=== PATIENT | female | born 1960 | race Caucasian/White ===

== ENCOUNTER 2021-02-03 14:25 | Emergency (ER) | payer BC, SELFPAY ==
[2021-02-03 14:34] VITALS: BP 105/68; PULSE 106; RESP 16; TEMP 36.8; O2SAT 98
--- NOTE | 2021-02-03 14:54 | ED.URI ---
HPI - URI/Sore Throat General Chief Complaint: Upper Respiratory Infection Stated Complaint: sinus issues Time Seen by Provider: 02/03/21 14:45 Source: patient Mode of arrival: ambulatory Limitations: no limitations History of Present Illness HPI Narrative: Layla Phillips is a 60 yo female with PMH of PCOS and anxiety , [facility] complaints of sinus headache and congestion that started on Sunday. She went to urgent care yesterday and was tested for Covid and flu which were negative but was not giving any medication, today she has some dizziness and feels foggy because of the congestion This is a recurrent situation for her this time of the year Related Data Home Medications Medication Instructions Recorded Confirmed alprazolam 1 mg tablet 1 mg PO DAILY 04/21/19 09/23/20 duloxetine 60 mg capsule,delayed 60 mg PO DAILY 04/21/19 09/23/20 release multivitamin 1 tablet PO DAILY 04/21/19 09/23/20 acetaminophen 650 mg 650 mg PO Q8H 01/28/20 09/23/20 tablet,extended release ibuprofen 200 mg capsule 200 mg PO Q6H PRN 01/28/20 09/23/20 raloxifene mg 02/03/21 suvorexant [Belsomra] mg PO 02/03/21 Allergies Allergy/AdvReac Type Severity Reaction Status Date / Time morphine AdvReac Intermediate SEVERE N/V Verified 02/03/21 14:32 POSTOP NO KNOWN DRUG ALLERGIES Allergy Unknown Y Uncoded 06/23/03 16:54 (Class Allergy) Review of Systems Review of Systems: CONSTITUTIONAL: Denies fever, chills, sweats. EYES: Denies visual changes, redness, discharge. ENT: Denies rhinorrhea, sinus congestion, sore throat, otalgia. CARDIOVASCULAR: Denies chest pain, palpitations, edema. RESPIRATORY: Denies dyspnea, wheezing, cough GASTROINTESTINAL: Denies abdominal pain, nausea, vomiting, diarrhea. GENITOURINARY: Denies dysuria, hematuria, abnormal discharge SKIN: Denies rash or itching. NEUROLOGIC: Denies numbness, or focal weakness. PSYCHIATRIC: Denies anxiety or depression. [facility] Past Medical History Medical History Anemia Anxiety Bilateral knee pain BMI 23.0-23.9, adult Degenerative arthritis of knee, bilateral Osteoporosis Rheumatoid arthritis Surgical History Surgical History H/O lumpectomy H/O: hysterectomy History of endometrial ablation Family History Family History Mother Family history of cardiovascular disease Family history of arthritis Father Family history of malignant melanoma Social History Social History Smoking status: Former smoker Second hand tobacco smoke exposure: No Smoking end date: 05/07/13 Alcohol intake: current Comments At time of signature, I agree with nursing past medical, surgical, social and family history. There is no relevant family history pertinent to the presenting complaint. Exam Narrative: GENERAL: This is a well-nourished, well-developed patient, in mild distress. HEAD: normocephalic, atraumatic. EYES: Sclera clear/white. Vision is grossly intact. EARS: External ears normal, auditory canals clear and without drainage, fluid behind TMs without perforation. Hearing grossly intact. NOSE: External nose normal without nasal discharge, nares with redness, no rhinorrhea. THROAT: Mucous membranes moist, posterior pharynx mild erythema NECK: Neck supple, non-tender CARDIOVASCULAR: Regular rate and rhythm without murmurs, gallops, or rubs. RESPIRATORY: Clear to auscultation. Breath sounds equal bilaterally. No wheezes, rales, or rhonchi. GASTROINTESTINAL: Abdomen soft, non-tender, SKIN: warm, intact with no suspicious lesions or rash, good texture and turgor. NEURO: awake, alert, and oriented to person, place and time. There were no obvious focal neurologic abnormalities. Steady gait EXTREMITIES: Normal range of motion. BACK: Nonte
== END 2021-02-03 15:03 | disposition home or self-care (01) ==
PROVIDERS: Emergency Provider Nurse Practitioner
DX: J01.10 Acute frontal sinusitis, unspecified (principal); Z87.891 Personal history of nicotine dependence; D64.9 Anemia, unspecified; M81.0 Age-related osteoporosis without current pathological fracture; M06.9 Rheumatoid arthritis, unspecified; M17.0 Bilateral primary osteoarthritis of knee; F41.9 Anxiety disorder, unspecified
CPT/HCPCS: 99213; G0463

== ENCOUNTER → 2022-03-08 14:22 | Outpatient (CLI) | payer BC, SELFPAY ==
--- NOTE | ~2022-03-08 | XR_ITS ---
XR ankle LT min 3V DATE: 03/08/2022 14:32 INDICATION: Fall one week ago. Lateral ankle pain. TECHNIQUE: 4 views COMPARISON: None FINDINGS: . There is anterolateral mild soft tissue swelling. No fracture or dislocation of the ankle or disruption of the ankle mortise. No periosteal reaction or bone destruction. IMPRESSION: Mild anterolateral soft tissue swelling; no fracture or dislocation is detected Reviewed, dictated and finalized at location A.
== END ==
PROVIDERS: PCP Family Medicine; Visit Provider Physician Assistant
DX: M25.572 Pain in left ankle and joints of left foot (principal); S99.912A Unspecified injury of left ankle, initial encounter; M79.89 Other specified soft tissue disorders
CPT/HCPCS: 73610

== ENCOUNTER → 2022-05-30 13:23 | Outpatient (CLI) | payer BC, SELFPAY ==
--- NOTE | ~2022-05-30 | DEXA_ITS ---
Bone Density Report Name: SHARON BERMUDEZ Age: 62 Sex: Female Ethnicity: White Date of : 1960 Indication: postmenopausal; screening for osteoporosis; height loss; hysterectomy; Referring Provider: JASWINDER, STANISLAW White Study: Bone densitometry was performed. Exam Date: May 30, 2022 Accession number: [id number] Bone Density: Region BMD T-score Z-score Classification AP Spine (L1-L4) 0.838 -1.9 -0.5 Osteopenia Femoral Neck (Left) 0.664 -1.7 -0.4 Osteopenia Total Hip (Left) 0.739 -1.7 -0.7 Osteopenia Femoral Neck (Right) 0.687 -1.5 -0.2 Osteopenia Total Hip (Right) 0.725 -1.8 -0.8 Osteopenia Total Hip Mean 0.732 -1.8 -0.8 Osteopenia World Health Organization criteria for BMD impression classify patients as: Normal (T-score at or above -1.0), Osteopenia (T-score between -1.0 and -2.5), or Osteoporosis (T-score at or below -2.5). 10-year Fracture Risk: FRAX not reported because: Treated for osteoporosis Clinical Information Provided by Patient: Is being treated for osteoporosis Has used the following medications: Evista (i.e. raloxifene) Has the following medical conditions: Hysterectomy Patient maximum height was 71 Menopause Age: 41 Drinks caffeinated beverages Onset of menses at age 15 Number of children 2 Impression: The patient has low bone mass, based on the Total Spine T-score. Discussion: It is important to ask patients whether they are taking their medications and to encourage continued and appropriate compliance with their osteoporosis therapies to reduce fracture risk. It is also important to review their risk factors and encourage appropriate calcium and vitamin D intakes, exercise, fall prevention and other lifestyle measures. Follow-Up: Consider a repeat BMD and Vertebral Fracture Assessment (VFA) exam in 2 years or sooner if medically necessary, to reassess this patient's status. Reported by: SHAHEED on 05/30/2022 1:48:00 PM. Reviewed, dictated and finalized at location AHerman SERRATO
== END ==
PROVIDERS: PCP Family Medicine; Visit Provider Family Medicine
DX: Z78.0 Asymptomatic menopausal state (principal); M85.89 Other specified disorders of bone density and structure, multiple sites
CPT/HCPCS: 77080

== ENCOUNTER 2022-11-16 20:45 | Emergency (ER) | payer OTHER, SELFPAY ==
--- NOTE | ~2022-11-16 | XR_ITS ---
EXAMINATION: XR wrist LT min 3V DATE: 11/16/2022 21:01 INDICATION: Left wrist pain. Fall. TECHNIQUE: 3 views of left wrist were obtained. COMPARISON: None. FINDINGS: There is a transverse fracture of distal radial metaphysis. The distal fracture fragment de monstrates impaction and dorsal angulation. There is 3 degrees dorsal tilt of the distal articular ott rface. There is a nondisplaced fracture of the ulnar styloid. There is mild osteoarthritis of first c arpometacarpal joint. IMPRESSION: 1. Transverse fracture of distal radial metaphysis. 2. Nondisplaced fracture of the ulnar styloid. Reviewed, dictated and finalized at location E.
[2022-11-16 20:51] VITALS: BP 113/73; PULSE 71; RESP 15; TEMP 36.4; O2SAT 100
[2022-11-16] MEDS: ONDANSETRON HCL ODT 4 MG TABLET PO (21:52)
[2022-11-16] MEDS: oxyCODONE/ACETAMINOPHEN (*CRX) 5-325 MG TABLET 1 TABLET PO (21:52)
--- NOTE | 2022-11-17 01:02 | ED.UPPEXIN ---
HPI - Extremity Injury (Upper) General Chief Complaint: Extremity Injury, Upper Stated Complaint: fell - LEFT wrist pain Time Seen by Provider: 11/16/22 21:33 History of Present Illness HPI narrative: 62-year-old female presents after fall on outstretched hand when she tripped walking her dog, she is having pain to her left wrist. No focal numbness or weakness Related Data Home Medications Medication Instructions Recorded Confirmed alprazolam 1 mg tablet (Xanax) 1 mg PO DAILY 04/21/19 10/24/22 duloxetine 60 mg capsule,delayed 60 mg PO DAILY 04/21/19 10/24/22 release (Cymbalta) multivitamin (Daily Multi-Vitamin 1 tablet PO DAILY 04/21/19 10/24/22 tablet) acetaminophen 650 mg 650 mg PO Q8H PRN Pain 01/28/20 10/24/22 tablet,extended release raloxifene 60 mg tablet 60 mg PO DIRECTED 02/03/21 10/24/22 tumeric 100 mg-leyda 150 mg-olive cap PO 06/23/21 10/24/22 50 mg-oreg 150 mg-caprylate capsule Allergies Allergy/AdvReac Type Severity Reaction Status Date / Time morphine AdvReac Intermediate SEVERE N/V Verified 10/19/22 14:20 POSTOP Review of Systems Review of Systems: CONST: No fever. HEENT: No head truama C/V: No chest pain RESP: No difficulty breathing GI: No abd pain : No flank pain M/S: Left wrist pain SKIN: No rash. NEURO: [No focal numbness or weakness] PSYCH: [No depression] [facility] Past Medical History Medical History Anemia Anxiety Arthritis of carpometacarpal (CMC) joint of right thumb Bilateral knee pain BMI 23.0-23.9, adult Degenerative arthritis of knee, bilateral Osteoporosis Rheumatoid arthritis Surgical History Surgical History H/O lumpectomy H/O: hysterectomy History of endometrial ablation Family History Family History Mother Family history of cardiovascular disease Family history of arthritis Father Family history of malignant melanoma Social History Social History Smoking status: Former smoker Second hand tobacco smoke exposure: No Smoking end date: 05/07/13 Alcohol intake: current Exam Narrative: EXAMINATION OF ORGAN SYSTEMS/BODY AREAS: Constitutional: Vital signs per nursing GENERAL:[No acute distress, non-toxic appearing.] HEAD: Normal with no signs of head trauma. EYES: EOMI, conjunctiva normal ENT: Hearing grossly intact LUNGS: Nonlabored breathing. HEART: [Regular rate and rhythm] ABD: [Soft], no distention EXT: Swelling and tenderness to the left wrist, full range of motion of the hand, normal radial pulses and good cap refill SKIN: [No rashes or lesions.] NEURO: [Alert and oriented x 3. No gross focal sensory or strength deficits.] PSYCH: Normal affect Course Vital Signs Vital signs: Vital Signs Temperature 97.6 F 11/16/22 20:51 Pulse Rate 71 11/16/22 20:51 Respiratory Rate 15 11/16/22 20:51 Blood Pressure 113/73 11/16/22 20:51 Pulse Oximetry 100 11/16/22 20:51 Oxygen Delivery Room Air 11/16/22 20:51 Temperature 97.6 F 11/16/22 20:51 Pulse Rate 71 11/16/22 20:51 Respiratory Rate 15 11/16/22 20:51 Blood Pressure 113/73 11/16/22 20:51 Pulse Oximetry 100 11/16/22 20:51 Oxygen Delivery Room Air 11/16/22 20:51 Procedures Orthopedic Splinting/Casting Injury #1: Splinting/Casting Date: 11/16/22 Side: left Upper Extremity Injury Location: wrist Upper Extremity Immobilizer: volar splint Splint: customized in ED Pre-Procedure Neuro Vascular Exam: normal Post-Procedure Neuro Vascular Exam: normal MDM - Extremity Injury (Upper) MDM Narrative Medical decision making narrative: 62-year-old female presents after fall on outstretched left hand, denies any trauma or injuries anywhere else, on exam she is neurovascul
== END 2022-11-16 22:26 | disposition home or self-care (01) ==
LOC: ANHED 21:56
PROVIDERS: Emergency Provider Emergency Medicine; PCP Family Medicine
DX: S62.102A Fracture of unspecified carpal bone, left wrist, initial encounter for closed fracture (principal); Z87.891 Personal history of nicotine dependence; W01.0XXA Fall on same level from slipping, tripping and stumbling without subsequent striking against object, initial encounter
CPT/HCPCS: 29125; 73110; 99284; A9270

== ENCOUNTER 2022-11-24 00:33 | Day surgery (SDC) | payer OTHER, SELFPAY ==
[2022-11-22 14:13] VITALS: BMI 21.9
--- NOTE | 2022-11-22 14:35 | SUR.PREOP ---
Report to the Outpatient Waiting Room, entrance under the green pavilion located off [facility], at time 1000 on date 11/24/2022. Planned Procedure Time: 1200. Time changes happen often and if your time is changed the preop area will call you the afternoon before. - You and your visitor will be asked to self-screen and do not enter if you have any COVID symptoms. - A mask is optional within the hospital at this time. Patients may have clear liquids (water, carbonated beverages, clear teas, apple juice) until 3 hours prior to surgery with a maximum of 20 ounces- 0900. - No food from midnight until time of surgery - Infants may have breast milk until 4 hours before surgery, formula 6 hours prior to surgery. - Children will be allowed to drink immediately following surgery. If applicable, please bring a bottle or sippy cup to assist with drinking. Juice, water, soda, and popsicles are readily available. For infants on formula, please bring formula the day of surgery. Pacifiers are allowed. Take the following medications with a SIP of water the morning of surgery: Duloxetine, Tylenol as needed, Xanax as needed DO NOT STOP ANY OF YOUR OTHER PRESCRIPTION MEDICATIONS PRIOR TO SURGERY ?EXCEPT THE FOLLOWING Medications to discontinue per physician Vitamin Date to take last dose today- 11/22/2022 Please no make-up, nail bolivian, hairspray, perfume, deodorant, or body powder the day of surgery. No jewelry (including any body piercings) or valuables the day of surgery, leave them at home. Please take a shower or bath the night before, or the morning of, surgery with an antibacterial soap. Wear comfortable, loose fitting clothing. Children are encouraged to wear pajamas. - Jewelry must be removed prior to entering the operating room. Rings and piercings that are not removed may be cut off. - The hospital will not accept responsibility for valuables. - Please leave all valuables, including medications, at home the day of surgery. If you are going home after surgery, a licensed electric pile driver operator must drive you home. - NO public transportation without another adult if you receive anesthesia. - We recommend that an adult stay with you for 24 hours following discharge. - We also recommend that you do not drive, make important decision, drink alcoholic beverages, or take any drugs that were not prescribed by your health care provider for at least 24 hours after your discharge time. For Pediatric surgeries, we recommend two adults accompany the child home. Follow any additional instructions given to you from your surgeon. If you or anyone in your household have experienced Covid symptoms in the past week, please notify your surgeon or the nurse liaison at the phone number below for possible testing. Telephone instructions given to ____patient- Kelly and asked if any additional questions and then verbalized understanding. Patient advised to call surgeon office or pre surgery nurse liaison [phone] if any additional questions.
[2022-11-24] VITALS (7 sets, daily range): BP systolic 109–140; BP diastolic 77–96; PULSE 76–96; RESP 12–20; TEMP 36.1–37.3; O2SAT 96–99
--- NOTE | ~2022-11-24 | XR_ITS ---
EXAMINATION: XR surgery orthopedic DATE: 11/24/2022 12:10 CDT INDICATION: LT ORIF WRIST . TECHNIQUE: 2 fluoroscopic images of the left wrist were obtained during ORIF left wrist performed by the surgeon. I was not present in the operating room. Fluoroscopy exposure time was 26.7 seconds. Air Kerma 0.6129 mGy. DAP 0.01-2 mGym2. COMPARISON: 11/16/2022 FINDINGS: Screw and plate fixation of the distal radius into near-anatomic alignment. IMPRESSION: Fluoroscopic documentation of ORIF left wrist. Please refer to the operative note for complete proced ural details . Reviewed, dictated and finalized at location K. IMPRESSION: Fluoroscopic documentation of ORIF left wrist. Please refer to the operative no te for complete procedural details .
[2022-11-24] MEDS: ACETAMINOPHEN 500 MG TABLET 1000 MG PO (09:48)
[2022-11-24] MEDS: LACTATED RINGERS 1,000 ML 30 ML IV CONT ×2 (10:00→13:24)
[2022-11-24] MEDS: KETOROLAC 15 MG/ML VIAL (*BKC) IV PUSH (10:03)
--- NOTE | 2022-11-24 10:49 | WPDANESEPPF ---
Anes - Initial Pre Proc Eval Procedure: Operation Date: 11/24/22 11:00 Proposed Procedures p Open Reduction Internal Fixation Left Distal Radius - Naresh Fish MD Date/Time: 11/24/22 10:49 Surgeon: Naresh Fish MD Pre Op Diagnosis: Left Distal Radius Fx Patient Data Age: 62 Gender: F Height: 1.78 m Weight: 69.7 kg Last Vital Signs Temp 37.3 C 11/24/22 09:13 Pulse 76 11/24/22 09:13 Resp 20 11/24/22 09:13 BP 109/77 11/24/22 09:13 Pulse Ox 99 11/24/22 09:13 O2 Del Method Room Air 11/24/22 09:13 Allergies Allergy/AdvReac Type Severity Reaction Status Date / Time morphine AdvReac Severe SEVERE N/V Verified 11/24/22 09:15 POSTOP Home Medications Medication Instructions Recorded Confirmed Type alprazolam 1 mg tablet (Xanax) 1 mg PO DAILY PRN Anxiety 04/21/19 11/24/22 History duloxetine 60 mg capsule,delayed 90 mg PO DAILY 04/21/19 11/22/22 History release (Cymbalta) multivitamin (Daily Multi-Vitamin 1 tablet PO DAILY 04/21/19 11/22/22 History tablet) acetaminophen 650 mg 650 mg PO Q8H PRN Pain 01/28/20 11/22/22 History tablet,extended release raloxifene 60 mg tablet 60 mg PO DIRECTED 02/03/21 11/22/22 History ibuprofen 400 mg tablet 400 mg PO Q6H PRN pain #30 tabs 11/16/22 11/22/22 Rx trazodone 50 mg tablet 100 mg PO HS PRN insomnia 11/22/22 11/24/22 History Patient hx anesthesia problems: none Family hx anesthesia problems: none Results Review: All pre-operative results and documents have been reviewed as part of the pre-operative evaluation. [facility] Past Medical History Medical History Anemia Anxiety Arthritis of carpometacarpal (CMC) joint of right thumb Bilateral knee pain BMI 23.0-23.9, adult Degenerative arthritis of knee, bilateral Osteoporosis Rheumatoid arthritis Surgical History Surgical History H/O lumpectomy H/O: hysterectomy History of endometrial ablation Family History Family History Mother Family history of cardiovascular disease Family history of arthritis Father Family history of malignant melanoma Social History Social History Smoking packs per day: 0.5 Smoking cigarettes per day: 10.0 Years smoked: 25 Smoking pack-years: 12.50 Smoking status: Former smoker Tobacco type: cigarettes Second hand tobacco smoke exposure: No Smoking end date: 10/22/22 Alcohol intake: current Drinks per week: 2 Substance use: never Lack of Transportation: No Lack of Food: Never True Current Housing: I Have Housing Concerned About Future Housing: No Difficulty Paying Gas/Electric Bills: No Difficulty Paying for Meds: No Currently Unemployed: No Education: Trade/Vocational Certificate Difficulty w/ Childcare or Family Care: No Living arrangements: with family Spiritual care concerns: No Anes - Eval Final PreProcedure Day of Procedure 11/24/22 10:49 Patient weight: normal Heart: regular rate and rhythm Lungs: clear to auscultation Airway: Mallampati scale class II Neurological: alert and oriented Last oral intake: >/= 8 hours ASA classification: II Emergent: no Anesthetic plan: proceed Anesthesia type and monitoring: general LMA and standard monitoring Results Review: All pre-operative results and documents have been reviewed as part of the pre-operative evaluation. Informed Consent: The patient's anesthetic plan and its attendant risks and benefits were discussed with the patient/family/POA. Questions were solicited and answers provided to the satisfaction of the patient/family/POA.
--- NOTE | 2022-11-24 10:55 | WPDHPUPDATE1 ---
History and Physical Update Update Date/Time: 11/24/22 10:55 History and Physical has been reviewed, including an updated exam of the patient. There are NO changes in the patient's condition. Risks, benefits, and alternatives have been discussed and questions answered. Patient agrees to proceed with procedure.
[2022-11-24] MEDS: ceFAZolin 2 GM/D5W 50 ML 2 GM/50 ML BAG IVPB (11:44)
[2022-11-24] MEDS: SCOPOLAMINE 1.5 MG PATCH TRANSDERM (11:45)
[2022-11-24] MEDS: BUPIVACAINE/EPINEPHRINE 0.25% 50 ML VIAL 20 ML INFILTRATE (12:21)
--- NOTE | 2022-11-24 13:29 | P.OP_ITS ---
Procedure Note - Detailed Date of Procedure 11/24/22 Pre-op Diagnosis Left Distal Radius Fx Post-op Diagnosis Same Procedure Performed ORIF left distal radius fracture with fluoroscopic assistance Surgeon Naresh Fish MD [employer]obile Service Advisor Pal Lorenzo Anesthesia General Description of Procedure The patient was identified and the proper side identified. She was taken back to the operating room, transferred to the or table positioning supine taking care to pad her torso and extremities. After general anesthetic induction and intubation, a nonsterile tourniquet was placed high on the left arm which was prepped and draped in the usual sterile fashion. The extremity was exsanguinated and tourniquet inflated to 250 mmHg remaining up for approximately 61 minutes. A volar longitudinal incision was made along the FCR tendon distally. The subcutaneous tissue was sharply dissected protecting neurovascular structures. The FCR tendon was released from its sheath and retracted ulnarly. This allowed for the deep fascia of the forearm to be divided longitudinally in line with the incision. Care was taken to protect the volar compartment structures as well as the radial nerve and radial vascular structures. The pronator quadratus was elevated off of the distal radius allowing for inspection of the fracture site. The fracture fragments were disimpacted and able to be realigned virtually anatomically with fluoroscopic assistance. They were secured in this position with a wide short volar plate from the DVR set. The plate was applied with fluoroscopic visualization to avoid penetration of the joint and to ensure optimal hardware placement. Once the plate was secure the overall construct was assessed fluoroscopically on the AP and lateral views. The virtually anatomic reduction was held very nicely. The construct was stable. The wound was irrigated with a copious amount of sterile antibiotic solution. Skin edges were reapproximated with 3-0 Stratafix. Sterile dressing was applied. Tourniquet was released. A well-padded short- arm volar wrist splint was fashioned. The procedure was well tolerated. There were no known intraoperative complications. Estimated blood loss was negligible. Estimated Blood Loss 3 Tourniquet Time 61 Drains No Packing No Pathology None sent Complications No immediate complications Condition Stable Disposition PACU [facility] Billing Surgery - Charge Forward: Surgery Billing (28412; 0527 - intraoperative fluoroscopy)
== END 2022-11-24 15:10 | disposition home or self-care (01) ==
PROVIDERS: PCP Family Medicine; Visit Provider Orthopaedic Surgery
PROC: (CPT 25575; principal; 2022-11-24 11:00)
DX: S52.552A Other extraarticular fracture of lower end of left radius, initial encounter for closed fracture (principal); W19.XXXA Unspecified fall, initial encounter; D64.9 Anemia, unspecified; M81.0 Age-related osteoporosis without current pathological fracture; M06.9 Rheumatoid arthritis, unspecified; F41.9 Anxiety disorder, unspecified
CPT/HCPCS: 25607; 99199; A4565; A9270; C1713; J0690; J1100; J1170; J1885; J2250; J2405; J2704; J3010; J7120

== ENCOUNTER 2023-02-13 09:00 | Outpatient (RCR) | payer OTHER, SELFPAY ==
--- NOTE | 2023-01-10 09:54 | OTOPEVAL1 ---
Assessment and note entered by Mustapha Cruz, RAFY/Christopher, CHT Evaluation Information Assessment Status Evaluation Subjective Information Dx: Left distal radius fracture. s/p ORIF 11/24/22. She presents today in a wrist immobilizer. Reporting minimal pain, just stiffness . 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 Reported Pain Level Pain Score 0: Self Report Assessment OT Clinical Summary Patient presents to outpatient OT with dx of distal radius fracture s/p ORIF. She presents with stiffness and weakness that limits functional use for ADLs. Skilled OT indicated to maximize functional ROM, strength, and functional use via therapeutic activities and exercise, HEP instruction and progression, manual therapy, and modalities. Plan of Care Interventions Therapeutic Exercise,Manual Therapy,Therapeutic Activities,Paraffin OT Services Indicated Yes Treatment Frequency and 1x/week for 5 weeks Duration These treatments will address the objective and functional deficits as defined above. The patient will be advanced safely and appropriately in order for the patient to progress towards his/her prior level of function. Additional exercises will be introduced and as well as a comprehensive home exercise program upon discharge, if needed, ?to ensure carryover of functional gains achieved in the clinic. This treatment plan has been reviewed and agreement upon by the patient.
--- NOTE | 2023-01-10 09:55 | OPREHPOC ---
Outpatient Therapy Plan of Care This is a Multidisciplinary Plan of Care that may contain components documented by all disciplines (PT, OT, and ST.) OT Problem 1 OT Problem #1 Knowledge Deficit OT Goal 1 Goal 1. Patient to be independent with instructed materials. Target Visit 5 OT Problem 2 OT Problem #2 Impaired Range of Motion OT Goal 1 Goal Increased active ROM of the left UE: 1. pronation to 85 2. supination to 85 3. wrist flexion to 55 4. wrist extension to 50 Target Visit 5 OT Problem 3 OT Problem #3 Impaired Strength OT Goal 1 Goal 1. Increase functional lan specialist strength as measured by being able to complete lan specialist/pinch strengthening with at least yellow theraputty x5 minutes without pain.
--- NOTE | 2023-01-17 09:22 | PCOTNOTE ---
Patient called & cancelled scheduled appointment this date due to not feeling well.
--- NOTE | 2023-02-13 09:37 | OTOPDC ---
Assessment and note entered by Mustapha Cruz, OTR/Christopher, CHT Discharge Summary 02/13/23 Subjective Information Dx: Left distal radius fracture. s/p ORIF 11/24/22. Layla is reporting no pain, just some residual stiffness. Reports improvements in ROM and strength . She has progressed to 2 lb. with wrist strengthening. Reporting no paresthesias. Functionally she reports she is now able to lift 1/2 gallon of milk out of the fridge, hold a blow dryer, putting fitted sheet on her bed, and carrying groceries. Reported Pain Level Pain Score 0: Self Report Assessment OT Clinical Summary Patient re-evaluated today after 5 weeks of therapy. Patient has made excellent progress with therapy. ROM is measuring WFL and strength is getting back to normal limits. Reviewed HEP today and she is independent with all materials. No further skilled OT indicated at this time. Plan of Care OT Services Indicated No
== END 2023-02-13 13:51 | disposition home or self-care (01) ==
LOC: ANHOT 09:00
PROVIDERS: PCP Family Medicine; Visit Provider Orthopaedic Surgery
DX: S52.552D Other extraarticular fracture of lower end of left radius, subsequent encounter for closed fracture with routine healing (principal)
CPT/HCPCS: 97018; 97110; 97165

== ENCOUNTER 2023-08-23 11:20 | Outpatient (CLI) | payer OTHER, SELFPAY ==
--- NOTE | ~2023-08-23 | XR_ITS ---
Right Knee Technique: AP, lateral, and sunrise views were obtained. Clinical History: Arthritis Findings: No fracture or dislocation is seen. Osseous alignment is anatomic. Joint spaces are preserv ed without degenerative or erosive change. Soft tissues are unremarkable. No joint effusion is seen. Impression: Unremarkable right knee radiographs. Reviewed, dictated and finalized at location . Impression: Unremarkable right knee radiographs.
--- NOTE | ~2023-08-23 | XR_ITS ---
Left Knee Technique: AP, lateral, and sunrise views were obtained. Clinical History: Arthritis Findings: No fracture or dislocation is seen. Osseous alignment is anatomic. Joint spaces are preserv ed without degenerative or erosive change. Soft tissues are unremarkable. No joint effusion is seen. Impression: Unremarkable left knee radiographs. Reviewed, dictated and finalized at location . Impression: Unremarkable left knee radiographs.
== END 2023-08-23 11:21 | disposition home or self-care (01) ==
PROVIDERS: PCP Nurse Practitioner Family; Visit Provider Orthopaedic Surgery
DX: M17.0 Bilateral primary osteoarthritis of knee (principal)
CPT/HCPCS: 73564

== ENCOUNTER 2023-10-30 11:00 | Outpatient (CLI) | payer OTHER, SELFPAY ==
--- NOTE | ~2023-10-30 | CT_ITS ---
EXAMINATION: CT lung screening DATE: 10/30/2023 11:15 INDICATION: Z87.891 - Personal history of nicotine dependence TECHNIQUE: Computed tomography (CT) of the chest was performed without intravenous contrast. Addition al 3D reconstructions utilizing coronal maximum intensity projection (MIP) were performed. Automated exposure control and iterative reconstruction technique were employed. The dose-length product was 71 .03 mGy-cm. COMPARISON: None FINDINGS: Mild biapical pleural-parenchymal scarring. Mild discoid atelectasis in the basilar right lower lobe. No pulmonary nodules, pneumonia, pulmonary edema or pleural effusion. Heart size is normal. Small am ount of atherosclerotic coronary artery calcific lesion. No pericardial effusion. Thoracic aorta is n ormal in caliber. No pathologically enlarged thoracic lymphadenopathy. 7 mm cyst in the right hepatic lobe. Mild thoracic spondylosis. Mild thoracolumbar dextrocurvature. IMPRESSION: 1. Lung-RADS category 1: Negative. Continue annual screening with noncontrast low-dose chest CT in 12 months. Reviewed, dictated and finalized at location B. IMPRESSION: 1. Lung-RADS category 1: Negative. Continue annual screening with noncontrast l ow-dose chest CT in 12 months.
== END 2023-10-30 11:01 | disposition home or self-care (01) ==
PROVIDERS: PCP Family Medicine; Visit Provider Internal Medicine Critical Care Medicine
DX: Z12.2 Encounter for screening for malignant neoplasm of respiratory organs (principal); Z87.891 Personal history of nicotine dependence
CPT/HCPCS: 71271

== ENCOUNTER 2023-11-20 09:20 | Outpatient (CLI) | payer OTHER, SELFPAY ==
--- NOTE | 2023-11-28 23:24 | WPDHOMESLEEP ---
Sleep Study - Home Unattended Date of Study: 11/20/23 Ordering Provider: Sully Eaton MD Interpreting Provider: Sully Eaton MD Home Sleep Study Type: Watch PAT Height: 1.78 m Weight: 70.307 kg Body Mass Index: 22.2 Neck Circumference (inches): 12.75 [place]: 16 Reason for Sleep Study Hypersomnolence Sleep History Layla Phillips is a 63-year-old woman with excessive daytime sleepiness. She has difficulty falling asleep and staying asleep. This is been going on for years. It was better in her 20s when she had children. She was really tired by bedtime and did not have a problem falling asleep. She has tried speaker prescription medications including trazodone, Ambien, Lunesta and Belsomra. She never awakens from sleep short of breath. She never wakes at night with heartburn, belching or coughing.??She occasion snores loudly enough that others complain. She rarely has trouble sleeping when she has a cold. She never wakes up gasping for breath during the night. She never has breathing problems at night. She rarely sweats excessively at night. She never notices her heart pounding or beating irregularly during the night. She occasionally falls asleep during the day. She never falls asleep involuntarily, never falls asleep while driving. She never experiences loss of muscle tone with strong emotion. She never feels paralyzed on waking or falling asleep. She occasionally experiences vivid dreams upon waking or falling asleep. She never feels afraid of going to sleep. She occasionally has nightmares. She occasionally recalls her dreams. She constantly has thoughts racing through her mind. She occasional feels sad or depressed. She constantly feels anxiety. She never notices parts of her body jerk. She never kicks during the night. She rarely feels crawling or aching feelings in her legs. She never feels leg pain at night. She never has morning jaw pain, and occasionally grinds her teeth at night. She rarely feels bothered by pain during the day, is rarely awakened by pain during the night. She occasionally wakes up feeling stiff in the morning, rarely wakes feeling sore or achy in the morning. She rarely awakens with pain in her neck, spine, or joints. Normal bedtime is 10:00 p.m., falling asleep within an hour and sometimes taking longer than an hour to fall asleep. She wakes twice to go to the bathroom and she will also read a book while awake. Her normal wake time is 7:00 a.m.. She keeps the same schedule on weekends. She estimates getting between 5 and 6 hours of sleep at night. She does not take naps in the afternoon or evening. She is not refreshed after short nap. She feels better in the afternoon compared to other times of day. Habits:??Tobacco: Quit 9 months ago Caffeine: 2 cups in the morning Alcohol: Social consumption Recreational substances: none PMFSH Past Medical History Medical History Anemia Anxiety Arthritis of carpometacarpal (CMC) joint of right thumb Bilateral knee pain BMI 23.0-23.9, adult Degenerative arthritis of knee, bilateral Insomnia Nondisplaced fracture of left ulna styloid process, initial encounter for closed fracture Osteoporosis Surgical History Surgical History Closed extra-articular fracture of distal end of left radius ORIF November 24, 2022 H/O lumpectomy H/O: hysterectomy History of endometrial ablation Family History Family History Mother Family history of cardiovascular disease Family history of arthritis Father Family history of malignant melanoma Social History Social History Smoking packs per day: 0.5 Smoking cigarettes per day: 10.0 Years smoked: 25 Smoking pack-years: 12.50 Smoking status: Former smoker T
[2023-11-28 23:36] VITALS: BMI 22.2
== END 2023-11-21 14:45 | disposition home or self-care (01) ==
LOC: ANHCSM 09:21
PROVIDERS: PCP Nurse Practitioner Family; Visit Provider Internal Medicine Critical Care Medicine
DX: G47.00 Insomnia, unspecified (principal)
CPT/HCPCS: 95800

== ENCOUNTER 2024-03-03 12:06 | Outpatient (CLI) | payer OTHER, SELFPAY | END 2024-03-03 12:07 | disposition home or self-care (01) | PROVIDERS: PCP Nurse Practitioner Family; Visit Provider Orthopaedic Surgery | DX: M17.0 Bilateral primary osteoarthritis of knee (principal) | CPT/HCPCS: 73564 ==

== ENCOUNTER 2025-04-24 14:37 | Emergency (ER) | payer OTHER, SELFPAY ==
[2025-04-24 14:54] VITALS: BP 155/94; PULSE 69; RESP 16; TEMP 36.6; O2SAT 99
--- NOTE | 2025-04-24 15:23 | ED.URI ---
HPI - URI/Sore Throat General Chief Complaint: Upper Respiratory Infection Stated Complaint: URI Symptoms x2 weeks Time Seen by Provider: 04/24/25 15:15 Source: patient and RN notes reviewed Mode of arrival: ambulatory Limitations: no limitations History of Present Illness HPI Narrative: 65-year-old female presents Express Care complaining of upper respiratory symptoms for 2 weeks. Patient reports sinus pressure, mucopurulent nasal drainage, cough is not getting much better. Patient has been doing sinus rinses without relief. Patient denies any fevers advice, chills, chest pain, breathing problems, or other symptoms. Related Data Home Medications ?Medication ?Instructions ?Recorded ?Confirmed ?Last Taken ?Type alprazolam 1 mg tablet (Xanax) 1 mg PO DAILY PRN Anxiety 04/21/19 01/19/25 11/24/22 04:00 History duloxetine 60 mg capsule,delayed 90 mg PO DAILY 04/21/19 01/19/25 11/23/22 16:00 History release (Cymbalta) multivitamin (Daily Multi-Vitamin 1 tablet PO DAILY 04/21/19 01/19/25 11/22/22 History tablet) buspirone 5 mg tablet 5 mg PO TID 10/16/23 01/19/25 Unknown History ramelteon 8 mg tablet 8 mg PO QHS 10/16/23 01/19/25 Unknown History suvorexant 5 mg tablet (Belsomra) mg PO 04/24/25 Unknown History Allergies Allergy/AdvReac Type Severity Reaction Status Date / Time morphine AdvReac Severe SEVERE N/V Verified 04/24/25 15:03 POSTOP Review of Systems Review of Systems: CONSTITUTIONAL: Denies fever, chills, or sweats. EYES: Denies visual changes, redness, or discharge. ENT: Denies rhinorrhea, sore throat, or otalgia. Positive for congestion and sinus pressure. CARDIOVASCULAR: Denies chest pain, palpitations, or edema. RESPIRATORY: Positive for cough. Negative for wheezing or dyspnea. GASTROINTESTINAL: Denies abdominal pain, nausea, vomiting, or diarrhea. GENITOURINARY: Denies dysuria or hematuria. SKIN: Denies rash or itching. MUSCULOSKELETAL: Denies back pain, joint pain, or myalgia. NEUROLOGIC: Denies headache, numbness, or weakness. PSYCHIATRIC: Denies anxiety or depression. All other systems reviewed are negative, except as documented in HPI. [facility] Past Medical History Medical History Insomnia Nondisplaced fracture of left ulna styloid process, initial encounter for closed fracture Arthritis of carpometacarpal (CMC) joint of right thumb Degenerative arthritis of knee, bilateral Bilateral knee pain Osteoporosis BMI 23.0-23.9, adult Anemia Anxiety Surgical History Surgical History Closed extra-articular fracture of distal end of left radius ORIF November 24, 2022 H/O lumpectomy History of endometrial ablation H/O: hysterectomy Family History Family History Mother Family history of cardiovascular disease Family history of arthritis Father Family history of malignant melanoma Social History Social History Smoking packs per day: 0.5 Smoking cigarettes per day: 10.0 Years smoked: 25 Smoking pack-years: 12.50 Smoking status: Former smoker Tobacco type: cigarettes Second hand tobacco smoke exposure: No Smoking end date: 10/22/22 Alcohol intake: current Drinks per week: 2 Substance use: never Lack of Transportation: No Lack of Food: Never True Current Housing: I Have Housing Concerned About Future Housing: No Difficulty Paying Gas/Electric Bills: No Difficulty Paying for Meds: No Currently Unemployed: No Education: Bachelor's Degree Difficulty w/ Childcare or Family Care: No Living arrangements: with family Occupation/Education: retired Spiritual care concerns: No Comments At the time of my signature, I reviewed and agree with the nursing past medical, surgical, social, and family history. There is no relevant family history pertinent to the patient complaint. Exam Narrative: GENERAL: This is a well-nourished, well-developed adult, in no apparent distress. They are non ill-appearing, nontoxic appearing. HEAD: normocephalic, atraumatic. EYES: Sclera clear/white. Conjunctiva normal. Vision is grossly intact. Extraocular movements intact EARS: External ears normal, auditory canals clear and without drainage, TMs normal without perforation. Hearing grossly intact. NOSE: External nose normal with no obvious nasal discharge, nasal turbinates erythematous, no rhinorrhea. Maxillary and frontal sinus tenderness to palpation THROAT: Mucous membranes moist, posterior pharynx clear, erythematous with exudative PND. Uvula midline. NECK: Neck supple, non-tender without lymphadenopathy, masses or thyromegaly. CARDIOVASCULAR: Regular rate and rhythm without murmurs, gallops, or rubs. RESPIRATORY: Clear to auscultation. Breath sounds equal bilaterally. No wheezes, rales, or rhonchi. SKIN: warm, Dry, intact with no suspicious lesions or rash, good texture and turgor. NEURO: awake, alert, and oriented to person, place and time. There were no obvious focal neurologic abnormalities. EXTREMITIES: No joint tenderness, effusion, or edema noted. BACK: Nontender without deformity. Course Course Level of Care: Express Care Visit Vital Signs Vital signs: Vital Signs Temperature 97.8 F 04/24/25 14:54 Pulse Rate 69 04/24/25 14:54 Respiratory Rate 16 04/24/25 14:54 Blood Pressure 155/94 H 04/24/25 14:54 Pulse Oximetry 99 04/24/25 14:54 Temperature 97.8 F 04/24/25 14:54 Pulse Rate 69 04/24/25 14:54 Respiratory Rate 16 04/24/25 14:54 Blood Pressure 155/94 H 04/24/25 14:54 Pulse Oximetry 99 04/24/25 14:54 [facility] Narrative Medical decision making narrative: Given patient's length of symptoms likely she has a bacterial sinusitis. Will Treat with Augmentin. Discussed physical exam findings. Advised supportive measures and signs/symptoms to go to the ER. Pt is appropriate for outpt treatment and f/u. Differential Diagnosis Differential Diagnosis: Differential diagnostic considerations for upper respiratory infection include upper respiratory infection, croup, otitis media, sinusitis, viral infection, bronchitis, influenza, pharyngitis, strep, uvulitis. Lab Data [facility] Lab Attestation statement: I personally reviewed the patient's lab results. Critical Care Time Critical Care Time Critical Care Time: No Discharge Plan Discharge Clinical Impression: Sinusitis Qualifiers: Sinusitis location: unspecified location Chronicity: acute Recurrence: non-recurrent Qualified Code(s): J01.90 - Acute sinusitis, unspecified Patient Disposition: Home Condition: Stable Instructions: Antibiotic Form, Sinusitis (ED) Additional Instructions: Take the antibiotics as directed and complete the course even if you start to feel better. You may use a Neti pot saline rinse 3 times a day with lukewarm distilled water Continue to take Tylenol or Motrin as needed for pain or fevers. Use a humidifier or vaporizer at night. Drink plenty of water. 8-10 glasses per day. Use flonase 2 times per day for 5 days then as needed Take mucinex 2 times per day and be sure to take with 8oz of water. Follow up with Primary provider in 3-5 days Please go to the ER if he develops any difficulty breathing, chest pain, vomiting, worsening symptoms, or any other serious concerns Patient Language: Surinamese Prescriptions: New amoxicillin-pot clavulanate 875-125 mg tablet 1 tablet PO Q12H 7 Days Qty: 14 0RF No Action Belsomra 5 mg tablet PO multivitamin [Daily Multi-Vitamin] Tablet 1 tablet PO DAILY Rx Instructions: Takes 1 tablet daily AM. alprazolam [Xanax] 1 mg tablet 1 mg PO DAILY PRN (Reason: Anxiety) duloxetine [Cymbalta] 60 mg capsule,delayed release(DR/EC) 90 mg PO DAILY Rx Instructions: Takes 60MG and 30MG at HS. meloxicam 15 mg tablet 15 mg PO DAILY Qty: 90 2RF ramelteon 8 mg tablet 8 mg PO QHS buspirone 5 mg tablet 5 mg PO TID Follow-up/Referrals: Sandra,Nathalie Hilliard APRN [Primary Care Provider, Unknown] Time of Disposition: 15:09
== END 2025-04-24 15:13 | disposition home or self-care (01) ==
PROVIDERS: PCP Nurse Practitioner Family
DX: J01.90 Acute sinusitis, unspecified (principal); Z87.891 Personal history of nicotine dependence; F41.9 Anxiety disorder, unspecified; M18.11 Unilateral primary osteoarthritis of first carpometacarpal joint, right hand; M17.0 Bilateral primary osteoarthritis of knee; M81.0 Age-related osteoporosis without current pathological fracture
CPT/HCPCS: 99213; G0463